=== PATIENT | male | born 1970 | race Caucasian/White ===

== ENCOUNTER 2024-12-30 14:31 | Emergency (ER) | payer BC ==
[2024-12-30] MEDS ORDERED: Sodium Chloride 0.9% 10 ML Syringe FLUSH PRN (14:49)
[2024-12-30 15:05] LABS: BASOPHILS PERCENT AUTO 0.6 % (0.3-3.8); EOSINOPHILS PERCENT AUTO 0.3 % (0.1-6.8); HEMATOCRIT 42.7 % (38.3-50.1); HEMOGLOBIN 15.1 g/dL (12.9-17.7); LYMPHOCYTES ABSOLUTE AUTO 0.6 x10-3/uL (0.5-4.5); MEAN CORPUSCULAR HEMOGLOBIN 34.1 pg (27.0-33.3); MEAN CORPUSCULAR HGB CONC 35.4 g/dL (28.7-35.3); MEAN CORPUSCULAR VOLUME 96.4 fL (80.8-98.7); MEAN PLATELET VOLUME 6.7 fL (6.7-11.0); MONOCYTES ABSOLUTE AUTO 0.3 x10-3/uL (0.0-1.2); MONOCYTES PERCENT AUTO 7.1 % (5.5-15.2); NEUTROPHILS ABSOLUTE AUTO 3.5 x10-3/uL (1.7-6.9); PLATELET COUNT,PLT 216 x10(3)uL (117-477); RED BLOOD CELL COUNT 4.43 x10(6)uL (3.90-5.90); RED CELL DISTRIBUTION WIDTH 12.9 % (12.4-15.0); WHITE BLOOD CELL COUNT,WBC 4.4 x10-3/uL (3.2-10.1)
[2024-12-30 15:15] LABS: A/G RATIO 1.1; ALANINE AMINOTRANSFERASE,ALT 27 U/L (12-36); ALBUMIN 4.1 g/dL (3.5-5.2); ALKALINE PHOSPHATASE 55 IU/L (56-112); ASPARTATE AMNIOTRANSFERASE,AST 22 IU/L (5-25); BILIRUBIN TOTAL 1.1 mg/dL (0.1-1.3); BLOOD UREA NITROGEN,BUN 8 mg/dL (7-18); CARBON DIOXIDE,CO2 30 mmol/L (21-32); CHLORIDE,CL 99 mmol/L (100-110); EST CRCL DRUG DOSING (CG) 96.55 mL/min; ESTIMATED GFR 90 mL/min (>60); GLUCOSE RANDOM 140 mg/dL (80-116); MAGNESIUM 1.9 mg/dL (1.8-2.5); POTASSIUM,K 4.7 mmol/L (3.5-5.3); PROTEIN TOTAL,TP 7.7 g/dL (6.0-8.0); SODIUM,NA 135 mmol/L (135-145)
[2024-12-30] MEDS: Sodium Chloride 0.9% 1,000 ML IV ONE (15:31)
== END 2024-12-30 17:05 | disposition home or self-care (01) ==
LOC: FB.ED 14:31
DX: R55 Syncope and collapse (principal); E86.0 Dehydration
CPT/HCPCS: 36415; 70450; 72125; 80053; 83735; 84484; 85025; 85379; 93005; 93010; 96360; 99284; 99284-25; J7030

== ENCOUNTER 2025-04-22 13:17 | Emergency (ER) | payer BC ==
[2025-04-22 14:06] LABS: BASOPHILS ABSOLUTE AUTO 0.0 x10-3/uL (0.0-0.3); BASOPHILS PERCENT AUTO 1.3 % (0.3-3.8); EOSINOPHILS ABSOLUTE AUTO 0.0 x10-3/uL (0.0-0.6); EOSINOPHILS PERCENT AUTO 0.8 % (0.1-6.8); LYMPHOCYTES ABSOLUTE AUTO 0.6 x10-3/uL (0.5-4.5); LYMPHOCYTES PERCENT AUTO 16.9 % (15.8-45.3); MEAN PLATELET VOLUME 6.9 fL (6.7-11.0); MONOCYTES ABSOLUTE AUTO 0.5 x10-3/uL (0.0-1.2); MONOCYTES PERCENT AUTO 14.6 % (5.5-15.2); NEUTROPHILS ABSOLUTE AUTO 2.3 x10-3/uL (1.7-6.9); NEUTROPHILS PERCENT AUTO 66.4 % (40.3-71.8); PLATELET COUNT,PLT 192 x10(3)uL (117-477); RED BLOOD CELL COUNT 4.36 x10(6)uL (3.90-5.90); RED CELL DISTRIBUTION WIDTH 13.2 % (12.4-15.0); WHITE BLOOD CELL COUNT,WBC 3.4 x10-3/uL (3.2-10.1)
[2025-04-22 14:08] LABS: BLOOD UREA NITROGEN,BUN 13 mg/dL (7-18); CARBON DIOXIDE,CO2 30 mmol/L (21-32); CHLORIDE,CL 101 mmol/L (100-110); CREATININE 0.8 mg/dL (0.70-1.30); EST CRCL DRUG DOSING (CG) 120.68 mL/min; ESTIMATED GFR 106 mL/min (>60); GLUCOSE RANDOM 137 mg/dL (80-116); POTASSIUM,K 4.7 mmol/L (3.5-5.3); SODIUM,NA 135 mmol/L (135-145)
[2025-04-22 14:14] LABS: A/G RATIO 1.2; ALANINE AMINOTRANSFERASE,ALT 40 U/L (12-36); ASPARTATE AMNIOTRANSFERASE,AST 43 IU/L (5-25); BILIRUBIN TOTAL 1.5 mg/dL (0.1-1.3); PROTEIN TOTAL,TP 7.1 g/dL (6.0-8.0)
[2025-04-22] MEDS: Sodium Chloride 0.9% 10 ML Syringe FLUSH PRN (14:26)
[2025-04-22 14:56] LABS: GLUCOSE,URINE NORMAL (NORMAL); OCCULT BLOOD,URINE NEGATIVE (NEGATIVE)
[2025-04-22 15:00] LABS: APPEARANCE,URINE CLEAR (CLEAR)
[2025-04-22 15:01] LABS: AMPHETAMINES SCREEN, URINE NEGATIVE (NEGATIVE); METHADONE SCREEN, URINE NEGATIVE (NEGATIVE); METHAMPHETAMINE SCREEN, URINE NEGATIVE (NEGATIVE); OXYCODONE SCREEN,URINE NEGATIVE (NEGATIVE)
[2025-04-22 15:02] LABS: BUPRENORPHINE SCREEN,URINE NEGATIVE (NEGATIVE)
== END 2025-04-22 16:55 | disposition home or self-care (01) ==
LOC: FB.ED 13:17
DX: G40.909 Epilepsy, unspecified, not intractable, without status epilepticus (principal); Z79.899 Other long term (current) drug therapy
CPT/HCPCS: 80053; 80307; 81003; 83735; 84484; 85025; 86140; 93005; 96365; 99284-25; J1953